=== PATIENT | female | born 1960 | race Caucasian/White ===

== ENCOUNTER 2016-12-28 06:36 | Inpatient (IN) | payer BC ==
[~2016-12-28] VITALS: Ht 167.6 cm; Wt 112.2 kg
[~2016-12-28 06:36] MED LIST: ANTIVERT12.5 MG PO; CALTRATE PLUS1 EACH PO; HYDROCODON-ACE1 EAC7 PO; IRON325 M1 PO; K-DUR20 MEQ PO; METAXALONE800 MG PO; METOPROLOL SUCC50 MG PO; MOTRIN800 MG PO; PERCOCET 5/31 TABLET PO; PROTONIX40 MG PO; SINGULAIR10 MG PO; VOLTAREN75 MG PO
[2016-12-28 07:22] VITALS: BP 178/109
[2016-12-28] MEDS ORDERED: VALIUM5 MG PO (07:32)
[2016-12-28 14:02] VITALS: BP 130/97
[2016-12-28 16:19] VITALS: BP 137/80
[2016-12-28 18:16] LABS: HEMATOCRIT 36.4 % (36.0-46.0); MCV 88.8 FL (83-99)
[2016-12-28 20:09] VITALS: BP 129/78
[2016-12-28 22:41] VITALS: BP 130/74
[2016-12-29] VITALS (8 sets, daily range): BP systolic 98–133; BP diastolic 54–64
[2016-12-29 07:03] LABS: ANION GAP 9 MEQ/L (2-14); CHLORIDE 105 MEQ/L (99-109); GFR ESTIMATE (CALCULATED) 50 mL/min/; GLUCOSE 94 mg/dL (70-99); POTASSIUM 4.1 MEQ/L (3.7-5.4); SAMPLE HEMOLYSIS CHECK 0; SAMPLE ICTERIC CHECK 0; SAMPLE LIPEMIA CHECK 0; SODIUM 138 MEQ/L (136-147); UREA NITROGEN (BUN) 20 mg/dL (9-23)
[2016-12-30] VITALS (7 sets, daily range): BP systolic 117–137; BP diastolic 58–87
[2016-12-30] MEDS ORDERED: HYDROCODON-ACE1 EAC7 PO (13:47)
[2016-12-30] MEDS ORDERED: SENNA PLUS TAB1 EACH PO (13:47)
[2016-12-30] MEDS ORDERED: ELIQUIS2.5 MG PO (13:47)
[2016-12-30] MEDS ORDERED: LIDOCAINE700 MG TD (13:47)
[2016-12-31 00:49] VITALS: BP 127/58
[2016-12-31 07:21] VITALS: BP 120/64
[2016-12-31 12:57] VITALS: BP 125/60
== END 2016-12-31 16:17 | DRG 470 ==
LOC: 2SOUTH 06:36 → 3EAST 06:36 → 2SOUTH 08:50 → 3WEST 13:20 → 2SOUTH 14:44 → 3EAST 12-30 18:01
PROVIDERS: Orthopaedic Surgery
PROC: 0SR90JZ Replacement of Right Hip Joint with Synthetic Substitute, Open Approach (ICD-10-PCS; principal; 2016-12-28)
DX: M16.11 Unilateral primary osteoarthritis, right hip (principal); Z68.39 Body mass index [BMI] 39.0-39.9, adult; I10 Essential (primary) hypertension; Z80.9 Family history of malignant neoplasm, unspecified; Z82.49 Family history of ischemic heart disease and other diseases of the circulatory system; Z83.3 Family history of diabetes mellitus; Z90.710 Acquired absence of both cervix and uterus; R11.0 Nausea
CPT/HCPCS: 71010; 80048; 85014; 85018; 97530 GO; J0131; J0690; J1885; J2405; J2765; J3010; J7050; J7120; S0020

== ENCOUNTER → 2017-04-14 | Outpatient (CLI) | payer BC ==
[~2017-04-14] MED LIST changes: +ELIQUIS2.5 MG PO; +FERROUS SULFAT325 MG PO; +FLONASE ALLERG9.9 ML BOTH NARES; +HYDROCODON-ACE1 EAC9 PO; +LIDOCAINE700 MG TD; -METOPROLOL SUCC50 MG PO; +SENNA PLUS TAB1 EACH PO; +TOPROL XL50 MG PO; +VALIUM5 MG PO
== END | disposition home or self-care (01) ==
LOC: CDC 15:55
DX: Z01.810 Encounter for preprocedural cardiovascular examination (principal); M17.12 Unilateral primary osteoarthritis, left knee
CPT/HCPCS: 93000

== ENCOUNTER 2017-04-18 21:09 | Inpatient (IN) | payer BC ==
[~2017-04-18] VITALS: Ht 167.6 cm; Wt 112.3 kg
[2017-04-19 06:59] VITALS: BP 141/85
[2017-04-19 13:03] VITALS: BP 120/61
[2017-04-19 15:46] VITALS: BP 127/69; BP 89/50
[2017-04-19 16:58] VITALS: BP 128/74
[2017-04-19 18:06] VITALS: BP 119/74
[2017-04-19 20:15] VITALS: BP 126/57
[2017-04-20 00:15] VITALS: BP 107/59
[2017-04-20 03:45] VITALS: BP 134/63
[2017-04-20 06:59] LABS: ANION GAP 8 MEQ/L (2-14); CHLORIDE 105 MEQ/L (99-109); GFR ESTIMATE (CALCULATED) > 59 mL/min/; GLUCOSE 105 mg/dL (70-99); POTASSIUM 4.2 MEQ/L (3.7-5.4); SAMPLE HEMOLYSIS CHECK 0; SAMPLE ICTERIC CHECK 0; SAMPLE LIPEMIA CHECK 0; SODIUM 138 MEQ/L (136-147); UREA NITROGEN (BUN) 14 mg/dL (9-23)
[2017-04-20 07:48] VITALS: BP 122/60
[2017-04-20] MEDS ORDERED: ELIQUIS2.5 MG PO (09:13)
[2017-04-20] MEDS ORDERED: HYDROCODON-ACE1 EAC7 PO (09:13)
[2017-04-20 11:36] VITALS: BP 112/52
[2017-04-20 15:38] VITALS: BP 143/68
[2017-04-20 19:52] VITALS: BP 132/64
[2017-04-21] VITALS (7 sets, daily range): BP systolic 114–148; BP diastolic 63–89
[2017-04-22] VITALS: BP 128/71
[2017-04-22 03:53] VITALS: BP 140/81
[2017-04-22 08:27] VITALS: BP 132/89
[2017-04-22 12:17] VITALS: BP 129/69
[2017-04-22 15:19] VITALS: BP 132/75
== END 2017-04-22 16:11 | DRG 470 ==
LOC: 2SOUTH → ENRESERV 21:09 → 3WEST 04-19 06:28 → 2SOUTH 04-19 06:28 → 3WEST 04-19 13:00 → 2SOUTH 04-19 14:53 → 3WEST 04-22 14:15 → ENRESERV 04-22 14:26 → CANRESERV 04-22 15:27 → 3WEST 04-22 16:11
PROVIDERS: Orthopaedic Surgery
PROC: 0SRD0J9 Replacement of Left Knee Joint with Synthetic Substitute, Cemented, Open Approach (ICD-10-PCS; principal; 2017-04-19)
DX: M17.12 Unilateral primary osteoarthritis, left knee (principal); K21.9 Gastro-esophageal reflux disease without esophagitis; E66.9 Obesity, unspecified; G47.33 Obstructive sleep apnea (adult) (pediatric); Z85.3 Personal history of malignant neoplasm of breast; Z85.51 Personal history of malignant neoplasm of bladder; Z90.710 Acquired absence of both cervix and uterus; Z90.10 Acquired absence of unspecified breast and nipple; Z90.49 Acquired absence of other specified parts of digestive tract; Z91.040 Latex allergy status; Z68.39 Body mass index [BMI] 39.0-39.9, adult; Z88.5 Allergy status to narcotic agent; Z91.048 Other nonmedicinal substance allergy status; Z83.3 Family history of diabetes mellitus; Z82.61 Family history of arthritis; Z80.1 Family history of malignant neoplasm of trachea, bronchus and lung; Z80.49 Family history of malignant neoplasm of other genital organs; Z82.49 Family history of ischemic heart disease and other diseases of the circulatory system; Z80.3 Family history of malignant neoplasm of breast; Z87.891 Personal history of nicotine dependence
CPT/HCPCS: 71010; 80048; C1713; J0131; J0690; J1170; J1885; J2250; J7050; J7120; L1820; Q0175; S0020